=== PATIENT | female | born 1995 | race Caucasian/White ===

== ENCOUNTER → 2019-09-28 | Outpatient (REF) | payer OTHER ==
[2019-09-28 21:32] LABS: CHLAMYDIA DNA AMPLIFICATION NEGATIVE (NEGATIVE); GC DNA AMPLIFICATION NEGATIVE (NEGATIVE)
== END ==
LOC: M LAB REF 16:32
PROVIDERS: ATTEND Physician Assistant
DX: R30.0 Dysuria (principal)

== ENCOUNTER → 2019-12-24 | Outpatient (REF) | payer OTHER | LOC: M WUC 12:00 | PROVIDERS: ATTEND Physician Assistant | DX: J02.9 Acute pharyngitis, unspecified (principal) | CPT/HCPCS: 87081; U0003 ==

== ENCOUNTER 2020-12-13 20:58 | Emergency (ER) | payer MEDICAID, OTHER, SELFPAY ==
[~2020-12-13] VITALS: Ht 160 cm; Wt 72.7 kg
[2020-12-13 23:26] LABS: HEMATOCRIT 40.2 % (36.0-47.0); HEMOGLOBIN 13.4 g/dl (12.0-15.5); MEAN CORPUSCULAR HEMOGLOBIN 30.5 pg (27.0-33.0); MEAN CORPUSCULAR HGB CONC 33.3 g/dl (32.0-36.5); MEAN CORPUSCULAR VOLUME 91.6 fl (80.0-96.0); PLATELET COUNT, AUTOMATED 249 10^3/uL (150-450); RED BLOOD COUNT 4.39 10^6/uL (4.00-5.40); WHITE BLOOD COUNT 10.5 10^3/uL (4.0-10.0)
[2020-12-14 00:51] LABS: CHLAMYDIA DNA AMPLIFICATION NEGATIVE (NEGATIVE); GC DNA AMPLIFICATION NEGATIVE (NEGATIVE)
--- NOTE | 2020-12-14 05:30 | REPVR ---
PROCEDURE INFORMATION: Exam: US First Trimester, Transabdominal Exam date and time: 12/13/2020 11:56 PM Age: 25 years old Clinical indication: Lmp or gestational age (in weeks): Unk; Antepartum complications; Bleeding; ; Additional info: Cramping TECHNIQUE: Imaging protocol: Real-time transabdominal obstetrical ultrasound of the maternal pelvis and a first trimester , less than 14 weeks 0 days, with image documentation. COMPARISON: No relevant prior studies available. FINDINGS: Last menstrual period: The last menstrual period is unknown. Gestation: No intrauterine is demonstrated. BIOMETRY: Gestational age (AUA): Unknown MATERNAL: Uterus: The uterus is anteverted and normal in size measuring 7.2 x 3.3 x 4.2 cm. The endometrial stripe is normal in thickness measuring up to 1.0 cm. Cervix: Unremarkable. Right adnexa: The right ovary measures 4.4 x 2.1 x 2.0 cm. There is a 2.2 x 2.0 x 1.6 cm rounded echogenic structure extending from or adjacent to the right ovary that does not demonstrate fluid within. There is normal vascularity to the right ovary. Left adnexa: The left ovary measures 2.4 x 1.1 x 1.0 cm. Intraperitoneal space: There is some trace free fluid. IMPRESSION: 1. There is no intrauterine demonstrated in this patient with a positive beta HCG. An ectopic cannot be excluded. 2. Solid echogenic structure extending from or adjacent to the right ovary may represent a exophytic follicle, but again, an ectopic cannot be excluded and correlation with beta HCG serial ultrasound is recommended. Electronically signed by: Markel Fontenot On 12/14/2020 05:29:26 AM
[2020-12-14 08:38] VITALS: BP 121/57
--- NOTE | 2020-12-14 11:31 | ED PDOC ---
Post-Departure Follow-Up 1st trimester us faxed to dr cam for fu Amanda Bass MD December 14, 2020 11:31
== END 2020-12-14 08:47 | disposition home or self-care (01) ==
LOC: M ED 20:58
DX: O26.891 Other specified pregnancy related conditions, first trimester (principal); R10.2 Pelvic and perineal pain; Z3A.00 Weeks of gestation of pregnancy not specified; Z91.041 Radiographic dye allergy status

== ENCOUNTER → 2020-12-15 | Outpatient (CLI) | payer MEDICAID, SELFPAY | LOC: M LAB 10:15 | PROVIDERS: ATTEND Physician Assistant | DX: R10.2 Pelvic and perineal pain (principal) ==

== ENCOUNTER 2020-12-22 16:45 | Emergency (ER) | payer MEDICAID ==
[~2020-12-22] VITALS: Ht 160 cm; Wt 69.8 kg
[2020-12-22 19:29] LABS: APPEARANCE, URINE HAZY (CLEAR); BACTERIA, URINE AUTO NEGATIVE (NEGATIVE); BILIRUBIN, URINE AUTO NEGATIVE (NEGATIVE); BLOOD, URINE BLOOD NEGATIVE (NEGATIVE); COLOR, URINE YELLOW (YELLOW); GLUCOSE, URINE (UA) AUTO NEGATIVE (NEGATIVE); KETONE, URINE AUTO NEGATIVE (NEGATIVE); LEUKOCYTE ESTERASE, URINE AUTO NEGATIVE (NEGATIVE); MUCUS, URINE SMALL (NEGATIVE); NITRITE, URINE AUTO NEGATIVE (NEGATIVE); PROTEIN, URINE AUTO NEGATIVE (NEGATIVE); RBC, URINE AUTO 0 /HPF (0-3); SPECIFIC GRAVITY URINE AUTO 1.029 (1.002-1.035); SQUAMOUS EPITHELIAL CELL UR AU 3 /HPF (0-6); WBC, URINE AUTO 1 /HPF (0-3)
[2020-12-22 19:32] LABS: BASO % 0.3 % (0.0-1.0); EOS # 0.1 10^3/uL (0.0-0.5); HEMATOCRIT 43.6 % (36.0-47.0); HEMOGLOBIN 14.7 g/dl (12.0-15.5); LYMPH # 2.8 10^3/uL (1.5-5.0); LYMPH % 22.8 % (24.0-44.0); MEAN CORPUSCULAR HEMOGLOBIN 30.9 pg (27.0-33.0); MEAN CORPUSCULAR HGB CONC 33.7 g/dl (32.0-36.5); MEAN CORPUSCULAR VOLUME 91.6 fl (80.0-96.0); MONO # 0.6 10^3/uL (0.0-0.8); NEUTROPHILS # 8.6 10^3/uL (1.5-8.5); NEUTROPHILS % 70.7 % (36.0-66.0); PLATELET COUNT, AUTOMATED 252 10^3/uL (150-450); RED BLOOD COUNT 4.76 10^6/uL (4.00-5.40); WHITE BLOOD COUNT 12.2 10^3/uL (4.0-10.0)
[2020-12-22 21:49] VITALS: BP 130/73
--- NOTE | 2020-12-23 08:06 | REP ---
INDICATION: VAGINAL BLEEDING COMPARISON: 12/13/2020 TECHNIQUE: Transabdominal and transvaginal 1st trimester obstetrical ultrasound with color Doppler evaluation. FINDINGS: Anteverted uterus measures 8.7 x 4.5 x 4.6 cm. And empty presumed gestational sac with mean sac diameter of 12 mm corresponds to 6 weeks 0 days gestational age. No yolk sac or pole identified. Maternal ovaries are normal in appearance and vascularity. Right ovary measures 3.4 x 1.8 x 1.8 cm and includes 2.0 cm complex possibly corpus luteum cyst. Left ovary measures 2.4 x 1.3 x 1.4 cm. IMPRESSION: Presumed empty gestational sac. Differential diagnosis includes blighted ovum/spontaneous as well as early . Ectopic much less likely cannot be excluded. Correlation with serial HCG levels and repeat ultrasound as necessary. <Electronically signed by Pablo Villarreal > 12/23/20 [id number]
== END 2020-12-22 21:51 | disposition home or self-care (01) ==
LOC: M ED 16:45
DX: O20.0 Threatened abortion (principal); Z91.041 Radiographic dye allergy status

== ENCOUNTER → 2020-12-29 | Outpatient (CLI) | payer MEDICAID ==
--- NOTE | 2020-12-29 10:32 | REP ---
INDICATION: PREG, DATING/VIABILITY. COMPARISON: 12/22/2020. TECHNIQUE: Real-time sonographic evaluation of gravid uterus performed. FINDINGS: Intrauterine gestational sac is present containing a pole with a crown-rump length of 5 mm. This corresponds to an estimated gestational age of 6 weeks 1 day, EDC 08/23/2021. heart rate is 124 beats per minute. A yolk sac is also seen within the gestational sac. There is no evidence of a subchorionic hemorrhage. IMPRESSION: Viable intrauterine gestation, estimated gestational age 6 weeks 1 day, EDC 08/23/2021. heart rate 124 beats per minute. <Electronically signed by Herbert Fonseca > 12/29/20 1021
== END ==
LOC: M RAD 09:43
PROVIDERS: ATTEND Physician Assistant
DX: Z32.01 Encounter for pregnancy test, result positive (principal)

== ENCOUNTER 2022-06-23 12:58 | Emergency (ER) | payer MEDICAID, SELFPAY ==
[~2022-06-23] VITALS: Ht 160 cm; Wt 74.2 kg
[2022-06-23 15:50] VITALS: BP 136/73
== END 2022-06-23 16:34 | disposition home or self-care (01) ==
LOC: M ED 12:58
DX: S80.211A Abrasion, right knee, initial encounter (principal); S10.93XA Contusion of unspecified part of neck, initial encounter; M79.602 Pain in left arm; Y04.8XXA Assault by other bodily force, initial encounter; Z91.041 Radiographic dye allergy status

== ENCOUNTER → 2022-11-29 | Outpatient (CLI) | payer OTHER ==
[2022-11-29 15:04] LABS: BASO % 0.5 % (0.0-1.0); EOS # 0.3 10^3/uL (0.0-0.5); EOS % 4.2 % (0.0-3.0); HEMATOCRIT 43.4 % (36.0-47.0); HEMOGLOBIN 14.4 g/dl (12.0-15.5); LYMPH # 1.6 10^3/uL (1.5-5.0); LYMPH % 19.9 % (24.0-44.0); MEAN CORPUSCULAR HGB CONC 33.2 g/dl (32.0-36.5); MEAN CORPUSCULAR VOLUME 93.3 fl (80.0-96.0); MONO # 0.5 10^3/uL (0.0-0.8); MONO % 6.2 % (2.0-8.0); NEUTROPHILS # 5.5 10^3/uL (1.5-8.5); NEUTROPHILS % 68.8 % (36.0-66.0); PLATELET COUNT, AUTOMATED 231 10^3/uL (150-450); RED BLOOD COUNT 4.65 10^6/uL (4.00-5.40)
[2022-11-29 15:34] LABS: ALBUMIN 4.2 G/DL (3.2-5.2); ALKALINE PHOSPHATASE 86 U/L (46-116); ALT/SGPT 33 U/L (7.0-40); AST/SGOT 21 U/L (<34); BILIRUBIN,TOTAL 0.5 MG/DL (0.3-1.2); BLOOD UREA NITROGEN 15 MG/DL (9-23); CALCIUM LEVEL 9.3 MG/DL (8.5-10.1); CARBON DIOXIDE LEVEL 26 MMOL/L (20-31); CHLORIDE LEVEL 106 MMOL/L (98-107); CHOLESTEROL LEVEL 186 MG/DL (<200); CHOLESTEROL RISK RATIO 3.08 (<5); FREE T4 1.12 NG/DL (0.89-1.76); GLOMERULAR FILTRATION RATE > 60.0 (>60); GLUCOSE, FASTING 92 MG/DL (60-100); HDL CHOLESTEROL 60.2 MG/DL (>40); LDL CHOLESTEROL 106.2 MG/DL (<100); NON-HDL-C 125.8 MG/DL; POTASSIUM SERUM 4.8 MMOL/L (3.5-5.1); SODIUM LEVEL 138 MMOL/L (136-145); THYROID STIMULATING HORMONE 1.743 uIU/ML (0.55-4.78); TOTAL PROTEIN 7.1 G/DL (5.7-8.2); TRIGLYCERIDES LEVEL 98 MG/DL (<150)
== END ==
LOC: M PLALAB 09:40
PROVIDERS: ATTEND Nurse Practitioner Family
DX: R63.5 Abnormal weight gain (principal); Z13.220 Encounter for screening for lipoid disorders; K90.41 Non-celiac gluten sensitivity

== ENCOUNTER → 2023-01-23 | Outpatient (REF) | payer OTHER | LOC: M SFHCPLAZ 17:35 | PROVIDERS: ATTEND Nurse Practitioner Family | DX: Z12.4 Encounter for screening for malignant neoplasm of cervix (principal) ==

== ENCOUNTER 2023-07-28 08:54 | Day surgery (SDC) | payer OTHER ==
[~2023-07-28] VITALS: Ht 160 cm; Wt 76.7 kg
[~2023-07-28 08:54] MED LIST: CETI5SOL3 PO; CLAR10CA3 PO; LR 1,000 ML IV SCH; MELA5CAP2 PO; VENTAER INH
[2023-07-28] MEDS ORDERED: LR 1,000 ML IV SCH ×2 (09:10→11:30)
[2023-07-28] MEDS ORDERED: ONDANSETRON 4MG 2ML VIAL As Ordered ONE (09:36)
[2023-07-28] MEDS ORDERED: ROCURONIUM BROMIDE 50MG/5ML VIAL As Ordered ONE (09:36)
[2023-07-28] MEDS ORDERED: KETOROLAC 60MG 2ML VIAL As Ordered ONE (09:36)
[2023-07-28] MEDS ORDERED: propofoL 200 MG/20 ML VIAL As Ordered ONE (09:36)
[2023-07-28] MEDS ORDERED: SUGAMMADEX SODIUM 500 MG/5 ML VIAL (BRIDION) As Ordered ONE (09:36)
[2023-07-28] MEDS ORDERED: LIDOCAINE 2% 100MG/5ML SDV (FOR ANES.) As Ordered ONE (09:36)
[2023-07-28] MEDS ORDERED: MIDAZOLAM INJ 2MG/2ML VIAL As Ordered ONE (09:40)
[2023-07-28] MEDS ORDERED: fentaNYL 100 MCG/2 ML INJECTION As Ordered ONE (09:40)
[2023-07-28 09:53] LABS: HEMATOCRIT 42.4 % (36.0-47.0); HEMOGLOBIN 14.6 g/dl (12.0-15.5); MEAN CORPUSCULAR HEMOGLOBIN 30.9 pg (27.0-33.0); MEAN CORPUSCULAR HGB CONC 34.4 g/dl (32.0-36.5); MEAN CORPUSCULAR VOLUME 89.6 fl (80.0-96.0); PLATELET COUNT, AUTOMATED 234 10^3/uL (150-450); RED BLOOD COUNT 4.73 10^6/uL (4.00-5.40); WHITE BLOOD COUNT 6.6 10^3/uL (4.0-10.0)
[2023-07-28 10:20] LABS: HCG, SERUM QUALITATIVE NEGATIVE (NEGATIVE)
[2023-07-28] MEDS ORDERED: ACETAMINOPHEN 1000MG 100ML IV BAG As Ordered ONE (10:51)
[2023-07-28] MEDS ORDERED: fentaNYL 100 MCG/2 ML INJECTION IV PRN (11:30)
[2023-07-28] MEDS ORDERED: HYDROMORPHONE HCL 0.5 MG/ 0.5 ML SYRINGE IV PRN (11:30)
[2023-07-28] MEDS ORDERED: oxyCODONE 5MG TAB PO PRN (11:30)
[2023-07-28] MEDS ORDERED: ONDANSETRON 4MG 2ML VIAL IV PRN (11:30)
[2023-07-28] MEDS ORDERED: PERC5TAB12 PO (11:36)
[2023-07-28] MEDS ORDERED: COLA100C5 PO (11:37)
[2023-07-28] MEDS ORDERED: IBUP80TA PO (11:37)
[2023-07-28 12:52] VITALS: BP 124/73; TEMP 97.8; O2SAT 98
== END 2023-07-28 13:32 | disposition home or self-care (01) ==
LOC: M SDC 08:54
PROVIDERS: ATTEND Obstetrics & Gynecology
DX: Z30.2 Encounter for sterilization (principal); N80.3C1 Endometriosis of the right uterosacral ligament, unspecified depth; N80.329 Endometriosis of the posterior cul-de-sac, unspecified depth; Z91.041 Radiographic dye allergy status; Z79.899 Other long term (current) drug therapy
CPT/HCPCS: 36415; 58661; 84703; 85027; 86850; 86900; 86901; 88302; J0131; J0665; J1100; J1885; J2250; J2405; J3010